=== PATIENT | male | born 1945 | race Caucasian/White ===

== ENCOUNTER 2016-09-13 14:43 | Inpatient (IN) | payer OTHER, MEDICARE ==
[~2016-09-13] VITALS: Ht 182.9 cm; Wt 80.3 kg
[~2016-09-13 14:43] MED LIST: 1-ME1LIQ PO; ALLO100T PO; ATOR40TA PO; KCL20 PO; LISI-366 PO; LORTA5 PO; MAGN400 PO; MULT-34 PO; RIVA10 PO; STRETAB PO; Z.0.WALKERFRONT
[2016-09-13 14:45] VITALS: BP 104/56; PULSE 60; RESP 24; O2SAT 94
--- NOTE | 2016-09-13 20:54 | PD ---
HPI Chief Complaint: General Weakness Time Seen by Provider: 20:34 Travel History International Travel<30 days: No Contact w/Intl Traveler<30days: No Traveled to known affect area: No History of Present Illness HPI 71yo M with chronic alcohol abuse (last alcohol was 3 days ago) was sent by PMD for failure to thrive. Pt went to PMD today because he has been not eating much for 2-3 days, generalized weakness for the last few days that he cannot even get up from bed. Pt usually is able to use walker to get to wheelchair. Pt also with hematuria for 1 month, chronic sob for at least 1 month and chronic abdominal pain. Pt had EGD/Colonoscopy last April and has bleeding ulcer. Currently denies any fever, chest pain, n/v, hematemesis or black stool. PFSH Past Medical History Hx Anticoagulant Therapy: Yes Cardiovascular Problems: Yes (HTN, HIGH CHOLESTEROL) High Cholesterol: Yes COPD: Yes Diminished Hearing: Yes (POARCH BILATERALLY) Gout: Yes Hypertension: Yes Musculoskeletal: Yes (L DROPFOOT) Past Surgical History Joint Replacement: Yes (R HIP ARTHROPLASTY) Other Surgery: Yes (PROSTATE) Social History Alcohol Use: Yes (DAILY) Tobacco Use: Yes (1 PPD) Substance Use: Yes Allergies-Medications (Allergen,Severity, Reaction): Coded Allergies: Crab (Verified Allergy, Unknown, 11/24/15) Reported Meds & Prescriptions Reported Meds & Active Scripts Active Magnesium Oxide 400 Mg Cap 400 Mg PO BID 15 Days Walker Front Wheel (Walkerfront) Device 1 Unit Xarelto 10 Mg Tab (Rivaroxaban) 10 Mg Tab 10 Mg PO Q24H Hydrocodone/Acetaminophen 5 mg/325 mg 1 Tab 1 Tab PO Q4H PRN Reported Stress Formula/Zinc (Multiple Vitamins W/ Minerals) Zinc Tab 1 Tab PO HS Thera-Tabs M (Amino Acids/Minerals/Vitamins) Tab 1 Tab PO DAILY Lisinopril 40 mg (Lisinopril) 40 Mg Tab 1 Tab PO DAILY Atorvastatin 40 mg (Atorvastatin Calcium) 40 Mg Tab 40 Mg PO DAILY Amlodipine Besylate 10 mg (Amlodipine Besylate) 10 Mg Tab 1 Tab PO DAILY Kcl 20 Meq Tab (Potassium Chloride) 20 Meq Tabcr 20 Meq PO DAILY Allopurinol 100 Mg Tab 100 Mg PO DAILY Review of Systems Except as stated in HPI: all other systems reviewed are Neg Physical Exam Narrative GENERAL: 71yo cachetic, pale. SKIN: Warm and dry. HEAD: Atraumatic. Normocephalic. EYES: Pupils equal and round. + scleral icterus. ENT: No nasal bleeding or discharge. Mucous membranes pink and moist. NECK: Trachea midline. No JVD. CARDIOVASCULAR: Regular rate and rhythm. No murmur appreciated. RESPIRATORY: No accessory muscle use. Clear to auscultation. Breath sounds equal bilaterally. GASTROINTESTINAL: Abdomen soft, +TTP diffusely. Distended. MUSCULOSKELETAL: No obvious deformities. No clubbing. No cyanosis. + Pitting edema in extremities. NEUROLOGICAL: Awake and alert. No obvious cranial nerve deficits. Motor grossly within normal limits. Normal speech. PSYCHIATRIC: Appropriate mood and affect; insight and judgment normal. Data Data Last Documented VS Vital Signs Date Time Temp Pulse Resp B/P Pulse Ox O2 Delivery O2 Flow Rate FiO2 09/13/16 14:58 09/13/16 14:45 60 24 94 Room Air Orders Basic Metabolic Panel (Bmp) (09/13/16 20:46) Complete Blood Count With Diff (09/13/16 20:46) Lipase (09/13/16 20:46) Lactic Acid (09/13/16 20:46) Prothrombin Time / Inr (Pt) (09/13/16 20:46) Act Partial Throm Time (Ptt) (09/13/16 20:46) Urinalysis - C+S If Indicated (09/13/16 20:46) Iv Access Insert/Monitor (09/13/16 20:46) Ecg Monitoring (09/13/16 20:46) Oximetry (09/13/16 20:46) Sodium Chloride 0.9% Flush (Ns Flush) (09/13/16 21:00) Electrocardiogram (09/13/16 20:46) Chest, Single Ap (09/13/16 20:46) Hepatic Functional Panel (09/13/16 20:46) Ammonia (09/13/16 20:46) Alcohol (Ethanol) (09/13/16 21:01) Magnesium (Mg) (09/13/16 21:35) Ct Abd/Pel W/O Iv Contrast (09/13/16 ) Potassium Chlor 20 Meq Premix (Kcl 20 Me (09/13/16 22:45) Potassium Chloride (Kcl) (09/13/16 22:45) Sodium Chlor 0.9% 1000 Ml Inj (Ns 1000 M (09/13/16 22:45) Ceftriaxone Inj (Rocephin Inj) (09/13/16 23:00) Azithromycin Inj (Zithromax Inj) (09/13/16 23:00) Blood Culture (09/13/16 22:46) Thiamine Inj (Thiamine Inj) (09/13/16 23:00) Admit Order (Ed Use Only) (09/13/16 23:23) Labs Laboratory Tests Test 09/13/16 09/13/16 21:35 21:37 Prothrombin Time 17.4 SEC Prothromb Time International 1.5 RATIO Ratio Activated Partial 41.6 SEC Thromboplast Time Sodium Level 140 MEQ/L Potassium Level 2.1 MEQ/L Chloride Level 100 MEQ/L Carbon Dioxide Level 25.9 MEQ/L Anion Gap 14 MEQ/L Blood Urea Nitrogen 16 MG/DL Creatinine 2.05 MG/DL Estimat Glomerular Filtration 32 ML/MIN Rate Random Glucose 99 MG/DL Calcium Level 7.8 MG/DL Magnesium Level 1.5 MG/DL Total Bilirubin 2.3 MG/DL Direct Bilirubin 1.6 MG/DL Indirect Bilirubin 0.7 MG/DL Aspartate Amino Transf 80 U/L (AST/SGOT) Alanine Aminotransferase 26 U/L (ALT/SGPT) Alkaline Phosphatase 187 U/L Total Protein 5.5 GM/DL Albumin 1.4 GM/DL Lipase 45 U/L Ethyl Alcohol Level LESS THAN 3 MG/DL White Blood Count 10.1 TH/MM3 Red Blood Count 2.29 MIL/MM3 Hemoglobin 8.1 GM/DL Hematocrit 23.9 % Mean Corpuscular Volume 104.0 FL Mean Corpuscular Hemoglobin 35.5 PG Mean Corpuscular Hemoglobin 34.1 % Concent Red Cell Distribution Width 18.2 % Platelet Count 177 TH/MM3 Mean Platelet Volume 8.9 FL Neutrophils (%) (Auto) 73.3 % Lymphocytes (%) (Auto) 20.1 % Monocytes (%) (Auto) 6.2 % Eosinophils (%) (Auto) 0.0 % Basophils (%) (Auto) 0.4 % Neutrophils # (Auto) 7.4 TH/MM3 Lymphocytes # (Auto) 2.0 TH/MM3 Monocytes # (Auto) 0.6 TH/MM3 Eosinophils # (Auto) 0.0 TH/MM3 Basophils # (Auto) 0.0 TH/MM3 CBC Comment DIFF FINAL Differential Comment Phosphorus Level 1.6 MG/DL Acetaminophen Level LESS THAN 2.0 MCG/ML Lactic Acid Level 6.6 mmol/L Ammonia 13 MCMOL/L [facility] Medical Decision Making Medical Screen Exam Complete: Yes Emergency Medical Condition: Yes Differential Diagnosis Failure to thrive vs. end stage cirrhosis vs. electrolyte abnormalities vs. pancreatitis Narrative Course 71yo M with chronic alcohol abuse here with failure to thrive impression. Labs reviewed, no leukocytosis. H/H 8.1/23.9. MCV 104. K is found to be 2.1, replace with 20mEq KCl IV and 60mEq KCl. Creatinine is elevated at 2.05 from 1.51 on 10/2015. Elevated bilirubin, alk phos, AST. Lactic acid is 6.6. Pt given IVF NS. Alcohol negative. Ammonia 13. CXR showed suspected mild area of consolidation at the inferior lateral right upper lobe with associated mild right pleural effusion. Pt given ceftriaxone and azithromycin. Discussed with [employer] certified internetwork expert Dr. Norton and accepted to ICU. Critical Care Narrative Aggregate critical care time was 40 minutes. Time to perform other separately billable procedures was not included in the critical care time. My time did not include minutes spent treating any other patients simultaneously or on activities that did not directly contribute to the patient's treatment. The services I provided to this patient were to treat and/or prevent clinically significant deterioration that could result in: cardiovascular collapse or . I provided critical care services requiring my management, as noted below: Chart data review, documentation time, medication orders and management, vital sign assessments/reviewing monitor data, ordering and reviewing lab tests, ordering and interpreting/reviewing x-rays and diagnostic studies, care of the patient and discussion of the patient with the admitting physicians. Diagnosis Primary Impression: Hypokalemia Additional Impression: Sepsis Qualified Code: A41.9 - Sepsis, due to unspecified organism Admitting Information Admitting Physician Requests: it Briana Pacheco DO Sep 13, 2016 20:54
[2016-09-13] MEDS ORDERED: SODIUM CHLORIDE 0.9% FLUSH 5 ML FLUSH IVF PRN (21:00)
--- NOTE | 2016-09-13 21:15 | RADRPT ---
EXAM DATE/TIME: 09/13/2016 21:01 [facility] COMPARISON: CHEST SINGLE AP, November 02, 2015, 18:56. INDICATIONS : Shortness of breath with weakness. MEDICAL HISTORY : None. SURGICAL HISTORY : None. ENCOUNTER: Initial ACUITY: 2 months PAIN SCORE: 2/10 LOCATION: Bilateral chest FINDINGS: There is an area of consolidation identified at the inferior lateral aspect of the righ t upper lobe abutting the minor fissure. There is a mild right pleural effusion seen as blunting of the right costophrenic angle. There is possible minimal left pleural effusion. The heart size is nor mal. CONCLUSION: Suspected mild area of consolidation at the inferior lateral right upper lobe with an associated mild right pleural effusion. Jarred Tejada MD on September 13, 2016 at 21:11 Board Certified Radiologist. This report was verified electronically.
[2016-09-13 21:50] LABS: AUTOMATED NEUTROPHIL # 7.4 TH/MM3 (1.8-7.7); BASOPHIL % 0.4 % (0.0-2.0); HEMATOCRIT 23.9 % (39.0-51.0); HEMO FLAGS DIFF FINAL; LYMPH % 20.1 % (9.0-44.0); MEAN CORPUSCULAR HEMOGLOBIN 35.5 PG (27.0-34.0); MEAN CORPUSCULAR HGB CONC 34.1 % (32.0-36.0); MONO % 6.2 % (0.0-8.0); NEUT % 73.3 % (16.0-70.0); PLATELET COUNT 177 TH/MM3 (150-450); RED BLOOD COUNT 2.29 MIL/MM3 (4.50-5.90); RED CELL DISTRIBUTION WIDTH 18.2 % (11.6-17.2); WHITE BLOOD COUNT 10.1 TH/MM3 (4.0-11.0)
[2016-09-13 22:00] VITALS: BP 128/76; PULSE 65; RESP 24; TEMP 97.5; O2SAT 94
[2016-09-13 22:02] LABS: MAGNESIUM 1.5 MG/DL (1.5-2.5)
[2016-09-13 22:06] LABS: APTT (PATIENT) 41.6 SEC (24.3-30.1); INTERNATIONAL NORMALIZED RATIO 1.5 RATIO; PROTHROMBIN TIME - PATIENT 17.4 SEC (9.8-11.6)
[2016-09-13 22:11] LABS: BICARBONATE 25.9 MEQ/L (21.0-32.0); INDIRECT BILIRUBIN 0.7 MG/DL (0.0-0.8); TOTAL BILIRUBIN ADULT 2.3 MG/DL (0.2-1.0)
[2016-09-13 22:33] LABS: POTASSIUM 2.1 MEQ/L (3.5-5.1)
[2016-09-13] MEDS ORDERED: POTASSIUM CHLOR 20 MEQ PREMIX 100 ML IV ONE (22:45)
[2016-09-13] MEDS ORDERED: SODIUM CHLOR 0.9% 1000 ML INJ 1,000 ML IV ONE (22:45)
[2016-09-13] MEDS ORDERED: POTASSIUM CHLORIDE 20 MEQ CONTROLLED RELEASE TAB PO ONE (22:45)
[2016-09-13] MEDS ORDERED: AZITHROMYCIN INJ 500 MG in SODIUM CHLOR 0.9% 250 ML INJ 250 ML IV ONE (23:00)
[2016-09-13] MEDS ORDERED: THIAMINE INJ 100 MG in SODIUM CHLORIDE 0.9% INJ 100 ML IV ONE (23:00)
[2016-09-13] MEDS ORDERED: cefTRIAXone INJ 1,000 MG in SODIUM CHLORIDE 0.9% INJ 100 ML IV ONE (23:00)
--- NOTE | 2016-09-13 23:01 | RADRPT ---
EXAM DATE/TIME: 09/13/2016 22:39 [facility] COMPARISON: No previous studies available for comparison. INDICATIONS : Upper abdominal pain ORAL CONTRAST: No oral contrast ingested. RADIATION DOSE: 10.5 CTDIvol (mGy) MEDICAL HISTORY : Cardiovascular disease. Hypertension. Chronic obstructive pulmonary disease. SURGICAL HISTORY : Prostatectomy. ENCOUNTER: Initial ACUITY: 3 days PAIN SCALE: 4/10 LOCATION: Right upper quadrant TECHNIQUE: Volumetric scanning of the abdomen and pelvis was performed. Using automated exposure control and ad justment of the mA and/or kV according to patient size, radiation dose was kept as low as reasonably achievable to obtain optimal diagnostic quality images. FINDINGS: Moderate size bilateral pleural effusions are identified. There is subsegmental atelectasis in the b oth bases. There is decreased density of the liver with respect to the spleen compatible with fatty i nfiltration. The spleen is unremarkable. Dissemination the gallbladder demonstrates soft tissue densi ty mass within the gallbladder which may reflect sludge or mucosal abnormality. The pancreas demonstr ates no evidence of mass and there is no dilatation of the pancreatic duct. MRI is recommended for fu rther evaluation if clinically indicated. The adrenal glands are unremarkable. The right kidney is un remarkable. There is a single simple cyst in the left kidney measuring 2 cm in the midpole. Examination of the pelvis demonstrates no evidence of free fluid or pelvic mass. No abnormally enlarg ed inguinal or retroperitoneal lymph nodes are present. The bladder is unremarkable. There is diverti culosis without evidence of diverticulitis. The prostate gland is surgically absent. CONCLUSION: 1. No evidence of acute abdominal or pelvic process. No masses are identified. 2. Hypodense liver compatible with fatty infiltration or hepatocellular disease. 3. Possible mucosal mass within the gallbladder. MRI is recommended for further evaluation if clinica lly indicated. 4. Diverticulosis without evidence of diverticulitis. 5. Bilateral effusions Zander Martines MD on September 13, 2016 at 22:56 Board Certified Radiologist. This report was verified electronically.
[2016-09-14] VITALS (21 sets, daily range): BP systolic 75–115; BP diastolic 48–64; PULSE 62–132; RESP 20–30; TEMP 97.3–98.3; O2SAT 92–99
[2016-09-14] MEDS ORDERED: CHLORHEXIDINE GLUCONATE 2 % 1 PACK (2 CLOTHS) TOP PRN
[2016-09-14] MEDS ORDERED: ONDANSETRON HCL 4 MG/2 ML VIAL IV PRN
[2016-09-14] MEDS ORDERED: MISCELLANEOUS NURSING INFORMATION XX SCH
[2016-09-14] MEDS ORDERED: RESP: ALBUTEROL 2.5 MG/3 ML NEB (PRN) INH
[2016-09-14 00:31] LABS: ACETAMINOPHEN LESS THAN 2.0 MCG/ML (10.0-30.0)
--- NOTE | 2016-09-14 00:39 | HHI.HP ---
HPI Service Critical Care Medicine Primary Care Physician Non-Staff Admission Diagnosis Severe hypokalemia, lactic acidosis Diagnosis: Travel History International Travel<30 Days: No Contact w/Intl Traveler <30 Da: No Traveled to Known Affected Are: No History of Present Illness 71 yo WM with past medical history of alcohol abuse, alcoholic cirrhosis, tobacco abuse, hyperlipidemia, hypertension,who presents to [facility] emergency department after he was sent by his primary physician due to failure to thrive. He still states that his fell and broke her hip about 4 months ago and he states that "since that time I have been lazy, and have not been taking care of myself, not taking my meds". He states he has had ongoing alcohol abuse drinking 1.75 L of whiskey every 2 days. He has had several episodes of falling stating that several weeks ago he fell and bruised his left hip, left shoulder, left rib area. He states that he typically uses a walker to transfer to wheelchair but he feels generally so weak that he is unable to do so anymore. He states he has had nothing to eat for 2-3 days and has been drinking only alcohol. He told ED physician that his last drink was 3 days ago. His alcohol level is less than 3. He denies any fever, cough, shortness of breath. He states he has chronic shortness of breath and chronic abdominal discomfort. He denies any nausea, vomiting, hematemesis. He states he has been incontinent of stool and urine for several weeks and has been using adult diapers. He states he has not been having very frequent bowel movements and has not noted any melena or bright red blood per rectum. He is afebrile. ED workup revealed WBC 10k, Hgb 8.1 ( 9.5 16), INR 1.5. He is hypokalemic with potassium of 2.1. Creatinine is 2.05, prior was 1.5 one in October 2015). Lactic acid is 6.6. Chest x-ray demonstrates a right upper lobe pneumonia. CT abdomen and pelvis demonstrated fatty infiltration of the liver. There was a possible gallbladder mass. Discussed with ED RN who states that he had had a large void in his diaper while in the ED. A Gay had subsequently been inserted and his urine output has been 30-40 ml/hr. Review of Systems ROS Limitations: Clinical Condition Past Family Social History Allergies: Coded Allergies: Crab (Verified Allergy, Unknown, 11/24/15) Past Medical History Cirrhosis Hypertension Hyperlipidemia Atrial fibrillation (he states he has never been on chronic anticoagulation... he may have been on xarelto following hip replacement) Alcohol abuse Tobacco abuse He had a previous admission under [place] act 04/20/14 Past Surgical History Right hip arthroplasty 11/03/15 EGD Prostate surgery Reported Medications Please note patient states he has not been compliant with any medications and has been taking no medications at home. Family History Patient denies significant family medical history Social History He smokes a pack of cigarettes per day He drinks 1.75 L of liquor every 2 days Denies use of illicit drugs He uses a walker to help him transfer to a wheelchair He is . His broke her hip for months ago and has not been able to care for him. Physical Exam Vital Signs Vital Signs Date Time Temp Pulse Resp B/P Pulse Ox O2 Delivery O2 Flow Rate FiO2 09/13/16 14:58 09/13/16 14:45 60 24 104/56 94 Room Air Physical Exam Core temperature 98.0 Pulse 60 respirations 24 blood pressure 104/58 sats 94% on room air GENERAL: Elderly chronically ill-appearing, pale, under nourished male who is laying in ED bed with multiple blankets over him. SKIN: dry, peripherally cool but perfused. HEAD: Atraumatic. Normocephalic. EYES: Pupils equal and round, 4 mm and reactive bilaterally. +icterus. ENT: No nasal bleeding or discharge. Mucous membranes dry NECK: Trachea midline. No JVD. CARDIOVASCULAR: irregularly irregular with a fib on the monitor. No murmurs rubs or gallops. RESPIRATORY: He is breathing comfortably on room air. Breath sounds are equal bilaterally. Unable to appreciate any wheezes Rales or rhonchi. GASTROINTESTINAL: He guards voluntarily with attempts at palpation. No obvious ascites on exam. Tender RUQ. No rebound. Bowel sounds present : Gay in place with dark alex urine output. MUSCULOSKELETAL: Extremities without clubbing, cyanosis. Bilateral upper extremities with dependent appearing pitting edema above and below elbows bilaterally. Bilateral lower extremities without edema. NEUROLOGICAL: Awake and alert. He is hard of hearing but no obvious cranial nerve deficits. Oriented x4. Strength 4+ to 5/5 BLE and BUE. Sensation intact to soft touch. No response to babinski. Normal speech. Laboratory Laboratory Tests Test 09/13/16 09/13/16 21:35 21:37 White Blood Count 10.1 Red Blood Count 2.29 Hemoglobin 8.1 Hematocrit 23.9 Mean Corpuscular Volume 104.0 Mean Corpuscular Hemoglobin 35.5 Mean Corpuscular Hemoglobin 34.1 Concent Red Cell Distribution Width 18.2 Platelet Count 177 Mean Platelet Volume 8.9 Neutrophils (%) (Auto) 73.3 Lymphocytes (%) (Auto) 20.1 Monocytes (%) (Auto) 6.2 Eosinophils (%) (Auto) 0.0 Basophils (%) (Auto) 0.4 Neutrophils # (Auto) 7.4 Lymphocytes # (Auto) 2.0 Monocytes # (Auto) 0.6 Eosinophils # (Auto) 0.0 Basophils # (Auto) 0.0 CBC Comment DIFF FINAL Differential Comment Prothrombin Time 17.4 Prothromb Time International 1.5 Ratio Activated Partial 41.6 Thromboplast Time Sodium Level 140 Potassium Level 2.1 Chloride Level 100 Carbon Dioxide Level 25.9 Anion Gap 14 Blood Urea Nitrogen 16 Creatinine 2.05 Estimat Glomerular Filtration 32 Rate Random Glucose 99 Calcium Level 7.8 Magnesium Level 1.5 Total Bilirubin 2.3 Direct Bilirubin 1.6 Indirect Bilirubin 0.7 Aspartate Amino Transf 80 (AST/SGOT) Alanine Aminotransferase 26 (ALT/SGPT) Alkaline Phosphatase 187 Total Protein 5.5 Albumin 1.4 Lipase 45 Ethyl Alcohol Level LESS THAN 3 Phosphorus Level 1.6 Acetaminophen Level LESS THAN 2.0 Lactic Acid Level 6.6 Ammonia 13 Date/Time Procedure Status Source Growth 09/13/16 23:00 Aerobic Blood Culture Received Blood Peripheral Pending 09/13/16 23:00 Anaerobic Blood Culture Received Blood Peripheral Pending Result Diagram: 09/13/16213409/[id number]/[id number] Septic Shock Reassessment Heart: Irregular Lungs: Clear Skin: Dry Peripheral Pulses: Weak Right Radial Weak Left Radial Weak Right Popliteal Weak Left Popliteal Weak Right Dorsalis Pedis Weak Left Dorsalis Pedis Weak Right Posterior Tibial Weak Left Posterior Tibial Capillary Refill: >2 seconds Assessment and Plan Assessment and Plan NEURO: Alcohol abuse Patient is currently awake alert and appears capacitated for medical decision- making at this time. Thiamine 100 mg IV daily, folic acid 1 mg by mouth daily, multivitamin 1 tab by mouth daily CIWA protocol Discussed alcohol cessation Ammonia level is normal at 13 RESP: Tobacco abuse Small right pleural effusion, small to moderate left pleural effusion Community acquired pneumonia Currently on room air. Will use oxygen by nasal cannula if needed to maintain sat greater than 92%. Incentive spirometry every hour. Smoking cessation discussed. Nicotine patch. DuoNeb every 6 hours with albuterol every 2 hours as needed CV: Hypotension secondary to hypovolemia vs sepsis Atrial fibrillation Hyperlipidemia Monitor hemodynamics. Lactic acid is elevated which may represent decreased hepatic clearance in the setting of cirrhosis though he does appear intravascularly dry, may be septic. Was bolused 1 L NaCl in the emergency department. He does appear clinically dry. We'll monitor urine output closely. IV fluids as per below He does not appear good candidate for anticoagulation for atrial fibrillation due to chronic alcoholism, cirrhosis with coagulopathy, frequent falls. Hold statin for now in view of elevated LFTs GI: Alcoholic Cirrhosis Diverticulosis Moderate chronic protein energy malnutrition Hyperbilirubinemia CT abdomen and pelvis 09/13/16no evidence of acute abdominal or pelvic process. There is fatty infiltration of the liver. There is soft tissue density in the gallbladder which may represent sludge versus mucosal mass. Per radiology MRI is recommended. Diverticulosis without diverticulitis. Lipase is normal at 45 Regular diet Right upper quadrant u/s. FEN/RENAL: Acute kidney injury overlying chronic kidney disease stage III Hypokalemia Hypophosphatemia History of prostate cancer status post prostatectomy Given 1 L normal saline in the emergency department Continued continue D5 0.45 NaCl at 125 mL per hour Added phosphorus to ED labs. We'll replace with K-Phos 30 mmol IV. Magnesium is 1.5. Will give magnesium 1 g IV. Received KCl 60 mEq by mouth in the emergency department. Is already receiving potassium chloride 20 Meq IV and will follow with additional 20 MEq IV. He is making urine. Will follow-up potassium, mag and phos. Gay in place. Monitor intake and output. Monitor electrolytes and replace as indicated Check FeNa ID: Acute community acquired pneumonia versus aspiration UTI Received Rocephin and azithromycin in the ED. Send urine pneumococcal antigen. Urinalysis +large LE, positive nitrates, many WBC. F/u urine culture Zosyn 2.25 g IV every 6 hours for aspiration pneumonia, UTI. Patient currently does not have significant ascites. Microbiology 09/13/16blood culture 2 setspending HEME: Macrocytic anemia secondary to liver disease Coagulopathy likely secondary to liver disease He has had poor po intake so will replete vitamin K. No reported evidence of GI bleeding at this time. Will follow-up CBC and monitor clinically. U/s BUE to evaluate for DVT. ENDO: Euglycemic MSK: Gout Allopurinol 100 po daily PROPH: Hold on pharmacologic DVT prophylaxis at this time as he is coagulopathic. Consider in 24 hours if he is stable w/o evidence of bleeding. Protonix 40 mg IV daily for stress ulcer prophylaxis ACCESS: Peripheral IV Patient states that he wishes to be DO NOT RESUSCITATE. He states he believes he has filled this out and formal advanced directives in the past but is not sure where this document is now. He currently is awake and oriented and appears capacitated for medical decision-making. He states that he does want therapy and states that he is "trying to get back on track" but states that "if his heart stops, let him go". Patient updated at bedside. He did become hypotensive in the ED with systolic blood pressure in the 80s. Bolused an additional 1 L normal saline followed up. Remained hypotensive in 80s. Placed CVL and started levophed. transfused 1 unit PRBC for Hgb 7.2 in setting of hypotension. Discussed with ED RN. Discussed with [facility] RN. CCT 55 minutes exclusive of separately billable procedures. aHzel Norton MD Sep 14, 2016 00:39
[2016-09-14] MEDS ORDERED: POTASSIUM PHOSPHATE INJ 30 MMOL in SODIUM CHLOR 0.9% 250 ML INJ 250 ML IV ONE (00:45)
[2016-09-14] MEDS: PIPERACIL-TAZO 2.25 GM PREMIX 50 ML IV SCH ×5 (01:01→23:31)
[2016-09-14] MEDS: ALBUMIN HUMAN 25% 25 GM/100 ML BAGP IV SCH ×4 (01:01→23:31)
[2016-09-14] MEDS: POTASSIUM CHLOR 20 MEQ PREMIX 100 ML IV SCH ×2 (01:02→03:19)
[2016-09-14] MEDS ORDERED: SODIUM CHLORIDE 0.9% FLUSH 5 ML FLUSH IV FLUSH PRN ×2 (01:30)
[2016-09-14] MEDS ORDERED: LORazepam 1 MG TAB PO PRN (01:30)
[2016-09-14] MEDS ORDERED: LORazepam 2 MG TAB PO PRN (01:30)
[2016-09-14] MEDS ORDERED: FLUMAZENIL 0.5 MG/5 ML VIAL IV PUSH PRN (01:30)
[2016-09-14] MEDS ORDERED: LORazepam 2 MG/ML VIAL IV PUSH PRN ×3 (01:30)
[2016-09-14] MEDS ORDERED: SODIUM CHLOR 0.9% 1000 ML INJ 1,000 ML IV ONE ×3 (01:45→05:15)
[2016-09-14] MEDS ORDERED: MAGNESIUM SULFATE 1 GM PREMIX 100 ML IV ONE ×2 (02:15→05:15)
[2016-09-14 02:36] LABS: BACTERIA, URINE MANY /hpf; BLOOD, URINE SMALL (NEG); GLUCOSE,URINE NEG (NEG); HYALINE CAST, URINE 13 /lpf (RARE); KETONE, URINE NEG (NEG); MUCUS URINE FEW /lpf (OCC); NITRITE,URINE POS (NEG); SQUAMOUS EPITHELIAL CELL URINE 1 /hpf (0-5); URINE COLOR ORANGE (YELLW/STRAW)
[2016-09-14 02:39] LABS: COMMENT (UR) CULTURE INDICATED; CULTURE IF INDICATED CULTURE INDICATED
[2016-09-14] MEDS ORDERED: TERBUTALINE INJ 1 MG/ML AMP SQ PRN (02:45)
[2016-09-14] MEDS: RESP: ALBUTEROL 2.5 MG/IPRATROPIUM 0.5 MG NEB (SCH) INH ×4 (02:48→20:40)
[2016-09-14] MEDS ORDERED: NOREPINEPHRINE 4 MG/4 ML AMP ONE (02:48)
[2016-09-14] MEDS: DEXT 5%-NACL 0.45% 1000 ML INJ 1,000 ML IV SCH ×3 (03:19→17:55)
[2016-09-14 03:47] LABS: AUTOMATED NEUTROPHIL # 3.8 TH/MM3 (1.8-7.7); BASOPHIL # 0.1 TH/MM3 (0-0.2); BASOPHIL % 0.9 % (0.0-2.0); LYMPH % 37.7 % (9.0-44.0); LYMPHOCYTE # 2.5 TH/MM3 (1.0-4.8); MEAN CELL VOLUME 104.4 FL (80.0-100.0); MEAN CORPUSCULAR HEMOGLOBIN 35.9 PG (27.0-34.0); MEAN CORPUSCULAR HGB CONC 34.4 % (32.0-36.0); MONO % 3.9 % (0.0-8.0); NEUT % 57.5 % (16.0-70.0); PLATELET COUNT 134 TH/MM3 (150-450); RED BLOOD COUNT 1.99 MIL/MM3 (4.50-5.90); RED CELL DISTRIBUTION WIDTH 17.9 % (11.6-17.2); WHITE BLOOD COUNT 6.6 TH/MM3 (4.0-11.0)
[2016-09-14 03:48] LABS: HEMO FLAGS DIFF FINAL
[2016-09-14 03:50] LABS: HEMATOCRIT 20.8 % (39.0-51.0)
[2016-09-14] MEDS ORDERED: SODIUM CHLOR 0.9% 250 ML INJ 250 ML IV ONE (04:00)
[2016-09-14] MEDS: CHLORHEXIDINE GLUCONATE 2 % 1 PACK (2 CLOTHS) TOP SCH (04:00)
[2016-09-14 04:02] LABS: CALCIUM-PROTEIN CORRECTED 8.6 MG/DL (8.5-10.1); MAGNESIUM 1.3 MG/DL (1.5-2.5); TOTAL BILIRUBIN ADULT 2.2 MG/DL (0.2-1.0)
[2016-09-14 04:04] LABS: POTASSIUM 2.6 MEQ/L (3.5-5.1)
[2016-09-14] MEDS ORDERED: LIDOCAINE 1%/EPINEPHrine 1:100,000 SOLN 30 ML VIAL ONE (04:53)
--- NOTE | 2016-09-14 05:13 | PD.PROCEDR ---
Procedure Note Procedure DATE: 09/14/16 CENTRAL LINE PLACEMENT: Right internal jugular vein. Ultrasound-guided INDICATION: Central venous access CONSENT Informed consent for procedure was obtained from patient after discussion of risks, benefits, alternatives. Signed consent is on the chart. DESCRIPTION OF THE PROCEDURE Patients reed was trimmed and shaved. The patient was placed in supine position, Trendelenburg. The skin was cleansed with Chloraprep. x4 Additional barrier precautions included large sterile drape, sterile gloves, sterile gown, face mask, and hat. 1 % lidocaine was used for local anesthesia. Under direct ultrasound guidance and on single attempt, the vein was accessed with an introducer needle. The guide wire was advanced and the tract was dilated. Using Seldinger technique a 7 Tamazight 20 cm antimicrobial coated triple -lumen catheter was advanced to a depth of 18 centimeters. The guide wire was removed. All ports had good return of dark venous blood and flushed easily with saline. The central line was secured with 2.0 silk. A sterile dressing with antibiotic disc was applied. ESTIMATED BLOOD LOSS: Minimal COMPLICATIONS: No apparent complications. STAT chest x-ray demonstrated satisfactory central venous line position without apparent complication. Hazel Norton MD Sep 14, 2016 05:12
--- NOTE | 2016-09-14 05:39 | RADRPT ---
EXAM DATE/TIME: 09/14/2016 05:00 [facility] COMPARISON: CHEST SINGLE AP, September 13, 2016, 21:01. INDICATIONS : Central line placement. MEDICAL HISTORY : Cardiovascular disease. Chronic obstructive pulmonary disease. Hypertension. SURGICAL HISTORY : None. ENCOUNTER: Subsequent ACUITY: 2 days PAIN SCORE: Non-responsive. LOCATION: Bilateral chest FINDINGS: The cardiac silhouette is enlarged in transverse diameter. There is patchy alveolar disease bilateral ly compatible with edema or pneumonia. The findings have worsened when compared with the prior examin ation. A right sided internal jugular vein catheter is in place with its tip in the superior vena cav a. A tiny right apical pneumothorax is present. CONCLUSION: 1. Line placement as above. Small right apical pneumothorax without tension Zander Martines MD on September 14, 2016 at 5:34 Board Certified Radiologist. This report was verified electronically.
[2016-09-14] MEDS: NOREPINEPHRINE-DEXTROSE DRIP 250 ML IV SCH ×2 (07:48→17:55)
[2016-09-14] MEDS: NICOTINE 21 MG/24 HR PATCH TD SCH (08:08)
[2016-09-14] MEDS: SODIUM CHLORIDE 0.9% FLUSH 5 ML FLUSH IV FLUSH SCH ×2 (08:08→20:43)
[2016-09-14] MEDS: POTASSIUM CHLOR 40 MEQ PREMIX 100 ML IV SCH ×2 (08:08→12:37)
[2016-09-14] MEDS: MULTIVITAMINS/MINERALS THERAPEUTIC TAB PO SCH (08:09)
[2016-09-14] MEDS: FOLIC ACID 1 MG TAB PO SCH (08:09)
[2016-09-14] MEDS: PANTOPRAZOLE SODIUM 40 MG VIAL IV SCH (08:09)
[2016-09-14] MEDS: LORazepam 2 MG/ML VIAL IV PUSH PRN ×2 (08:35→21:02)
[2016-09-14] MEDS: THIAMINE INJ 100 MG in SODIUM CHLORIDE 0.9% INJ 100 ML IV SCH (08:54)
[2016-09-14] MEDS: PHYTONADIONE 5 MG TAB PO SCH (08:59)
[2016-09-14] MEDS ORDERED: SODIUM CHLORIDE 0.9% FLUSH 5 ML FLUSH IV FLUSH SCH (09:00)
--- NOTE | 2016-09-14 10:27 | RADRPT ---
EXAM DATE/TIME: 09/14/2016 09:01 [facility] COMPARISON: CT ABDOMEN & PELVIS W/O CONTRAST, September 13, 2016, 22:39. INDICATIONS : Abnormal labs. Upper abdominal pain. Abnormal CT demonstrating hypodense liver. MEDICAL HISTORY : Hypercholesterolemia. Hypertension. Chronic obstructive pulmonary disease. Anticoagulant therapy. Gou t. ETOH abuse. Left drop foot. Cirrhosis. SURGICAL HISTORY : Right total hip replacement. Prostate surgery. EGD. ENCOUNTER: Initial ACUITY: 1 day PAIN SCORE: 8/10 LOCATION: Bilateral upper quadrant MEASUREMENTS: LIVER: 20.3 cm length COMMON DUCT: 3 mm RIGHT KIDNEY: 11.1 x 4.4 x 4.9 cm SPLEEN: 9.4 cm length FINDINGS: LIVER: The liver is enlarged measuring up to 20 cm with diffuse increased echogenicity. There is mild diffus e inhomogeneity with no ductal dilatation or focal mass. COMMON DUCT: No intraluminal mass or stone visualized. GALLBLADDER: Gallbladder demonstrates wall thickening measuring up to 8 mm with echogenic sludge layering dependen tly. There is ringdown artifact from an apparent small polyp. PANCREAS: The pancreatic duct appears mildly prominent. There is no evidence of pancreatic mass. RIGHT KIDNEY: No hydronephrosis, stone or solid mass. There is small simple appearing cystic structures. SPLEEN: No focal lesion. There is trace free fluid in the abdomen. There is a small left effusion noted. CONCLUSION: 1. Abnormal gallbladder with wall thickening and sludge. There is no apparent small polyp. 2. The liver is enlarged with findings most characteristic of fatty infiltration. 3. The pancreatic duct is mildly prominent no evidence of pancreatic mass. 4. Small left pleural effusion and trace free fluid in the abdomen. 5. Small left pleural effusion and minimal ascites. Christopher Davis MD on September 14, 2016 at 10:22 Board Certified Radiologist. This report was verified electronically.
--- NOTE | 2016-09-14 10:29 | RADRPT ---
EXAM DATE/TIME: 09/14/2016 09:29 [facility] COMPARISON: No previous studies available for comparison. INDICATIONS : Bilateral arm swelling. MEDICAL HISTORY : Chronic obstructive pulmonary disease. Hypertension. Hypercholesterolemia. ETOH abuse. Cirrhosis. A- Fib. Gout. Left dropfoot. SURGICAL HISTORY : Right hip arthroplasty. EGD. Prostate surgery. ENCOUNTER: Initial ACUITY: 4 - 6 days PAIN SCORE: 8/10 LOCATION: Bilateral arms. FINDINGS: RIGHT UPPER EXTREMITY: There is nonocclusive thrombus in the mid to distal cephalic vein. There is spontaneous flow document ed in the brachial, basilic, axillary, and subclavian veins. These vessels are compressible and augm entation response is documented. No filling defects are seen. The flow is phasic with respiration. Direction of flow in the jugular vein is caudal. LEFT UPPER EXTREMITY: There is spontaneous flow documented in the brachial, basilic, cephalic, axillary, and subclavian vei ns. The vessels are compressible and augmentation response is documented. No filling defects are se en. The flow is phasic with respiration. Direction of flow in the jugular vein is caudal. CONCLUSION: 1. Nonocclusive thrombus in the right mid to distal cephalic vein. The remainder of the right upper e xtremity venous system was patent. 2. The left upper extremity venous system is patent. Christopher Davis MD on September 14, 2016 at 10:26 Board Certified Radiologist. This report was verified electronically.
[2016-09-14] MEDS ORDERED: GLUCAGON 1 MG/ML VIAL OTHER PRN (11:00)
[2016-09-14] MEDS ORDERED: DEXTROSE 50% IN WATER 50 ML VIAL(D50) IV PUSH PRN (11:00)
[2016-09-14 11:46] LABS: AUTOMATED NEUTROPHIL # 6.4 TH/MM3 (1.8-7.7); BASOPHIL % 0.2 % (0.0-2.0); HEMATOCRIT 21.6 % (39.0-51.0); HEMO FLAGS DIFF FINAL; LYMPH % 16.5 % (9.0-44.0); LYMPHOCYTE # 1.3 TH/MM3 (1.0-4.8); MEAN CELL VOLUME 98.1 FL (80.0-100.0); MEAN CORPUSCULAR HEMOGLOBIN 33.4 PG (27.0-34.0); MEAN CORPUSCULAR HGB CONC 34.1 % (32.0-36.0); MONO % 5.1 % (0.0-8.0); NEUT % 78.2 % (16.0-70.0); PLATELET COUNT 117 TH/MM3 (150-450); RED CELL DISTRIBUTION WIDTH 21.6 % (11.6-17.2); WHITE BLOOD COUNT 8.2 TH/MM3 (4.0-11.0)
[2016-09-14 11:51] LABS: BICARBONATE 24.5 MEQ/L (21.0-32.0); MAGNESIUM 1.8 MG/DL (1.5-2.5)
[2016-09-14 11:55] LABS: CALCIUM-PROTEIN CORRECTED 8.1 MG/DL (8.5-10.1); TOTAL BILIRUBIN ADULT 2.4 MG/DL (0.2-1.0)
[2016-09-14 12:00] LABS: POTASSIUM 2.7 MEQ/L (3.5-5.1)
[2016-09-14] MEDS: INSULIN NovoLIN REGULAR SUPPLEMENTAL SCALE SQ SCH ×4 (12:14→23:00)
[2016-09-14] MEDS ORDERED: MAGNESIUM SULFATE INJ 2 GM in SODIUM CHLORIDE 0.9% INJ 96 ML IV PRN (12:45)
[2016-09-14] MEDS ORDERED: POTASSIUM PHOSPHATE MONOBASIC 500 MG TAB PO/TUBE PRN (12:45)
[2016-09-14] MEDS ORDERED: MAGNESIUM OXIDE 400 MG TAB PO PRN (12:45)
[2016-09-14] MEDS ORDERED: POTASSIUM CL 40 MEQ/30 ML LIQ UDC PO/TUBE PRN ×2 (12:45)
[2016-09-14] MEDS ORDERED: MAGNESIUM SULFATE INJ 4 GM in SODIUM CHLORIDE 0.9% INJ 92 ML IV PRN (12:45)
[2016-09-14] MEDS ORDERED: POTASSIUM PHOSPHATE MONOBASIC 500 MG TAB PO PRN (12:45)
[2016-09-14] MEDS ORDERED: POTASSIUM CHLOR 20 MEQ PREMIX 100 ML IV PRN ×2 (12:45)
[2016-09-14] MEDS ORDERED: SODIUM PHOSPHATE INJ 30 MMOL in SODIUM CHLOR 0.9% 250 ML INJ 240 ML IV PRN (12:45)
[2016-09-14] MEDS ORDERED: POTASSIUM PHOSPHATE INJ 30 MMOL in SODIUM CHLOR 0.9% 250 ML INJ 250 ML IV PRN (12:45)
[2016-09-14] MEDS ORDERED: POTASSIUM CHLOR 40 MEQ PREMIX 100 ML IV PRN (12:45)
--- NOTE | 2016-09-14 13:31 | RADRPT ---
EXAM DATE/TIME: 09/14/2016 12:49 [facility] COMPARISON: CHEST SINGLE AP, September 14, 2016, 5:00. INDICATIONS : Short of breath. MEDICAL HISTORY : Chronic obstructive pulmonary disease. Cardiovascular disease. Hypertension. SURGICAL HISTORY : None. ENCOUNTER: Initial ACUITY: 2 days PAIN SCORE: Non-responsive. LOCATION: Bilateral chest FINDINGS: 2 AP erect portal views of the chest were obtained and again demonstrate the right internal jugular c entral venous line in place. The patchy opacity at the lung bases is not significant change. Partial obscuration of the left hemidiaphragm is again noted and there is blunting of both costophrenic angle s. The heart size remains within normal limits. The bony thorax is intact. There is no visualized pne umothorax. CONCLUSION: 1. No visualized pneumothorax on the current study. 2. Hazy opacity remains in both lung bases without significant change. 3. Stable small pleural effusions. Christopher Davsi MD on September 14, 2016 at 13:27 Board Certified Radiologist. This report was verified electronically.
--- NOTE | 2016-09-14 17:19 | EKG ---
Date Performed: 09/13/2016 Time Performed: 22:12:26 PTAGE: 71 years EKG: ATRIAL FIBRILLATION WITH ABERRANT CONDUCTION OR VENTRICULAR PREMATURE COMPLEXES LOW QRS VOL TAGE ABNORMAL ECG PREVIOUS TRACING : 11/24/2015 21.03 Atrial fibrillation appears to be new since prior tracing. DOCTOR: Bulmaro Sawyer Interpretating Date/Time 09/14/2016 17:18:19
[2016-09-14 17:53] LABS: HEMATOCRIT 23.7 % (39.0-51.0)
[2016-09-14 17:56] LABS: REVIEW FLAG FINAL
[2016-09-14 19:43] LABS: POTASSIUM 2.5 MEQ/L (3.5-5.1)
[2016-09-14] MEDS ORDERED: POTASSIUM CHLORIDE 10 MEQ CONTROLLED RELEASE TAB PO ONE (20:30)
[2016-09-14] MEDS: POTASSIUM CHLOR 40 MEQ PREMIX 100 ML IV PRN (20:30)
[2016-09-15] VITALS (11 sets, daily range): BP systolic 82–136; BP diastolic 31–83; PULSE 72–146; RESP 28–40; TEMP 97.4–98.1; O2SAT 90–97
[2016-09-15] MEDS: POTASSIUM CHLOR 40 MEQ PREMIX 100 ML IV PRN (00:45)
[2016-09-15 01:03] LABS: HEMATOCRIT 25.7 % (39.0-51.0)
[2016-09-15] MEDS: LORazepam 2 MG/ML VIAL IV PUSH PRN (01:05)
[2016-09-15 01:14] LABS: REVIEW FLAG FINAL
[2016-09-15] MEDS: NOREPINEPHRINE-DEXTROSE DRIP 250 ML IV SCH (02:52)
[2016-09-15] MEDS: DEXT 5%-NACL 0.45% 1000 ML INJ 1,000 ML IV SCH ×2 (02:53→07:55)
[2016-09-15] MEDS: INSULIN NovoLIN REGULAR SUPPLEMENTAL SCALE SQ SCH ×4 (02:57→14:22)
[2016-09-15] MEDS: RESP: ALBUTEROL 2.5 MG/IPRATROPIUM 0.5 MG NEB (SCH) INH ×3 (03:40→16:00)
[2016-09-15] MEDS: CHLORHEXIDINE GLUCONATE 2 % 1 PACK (2 CLOTHS) TOP SCH (04:00)
[2016-09-15] MEDS ORDERED: NOREPINEPHRINE-DEXTROSE DRIP 250 ML IV SCH (04:45)
[2016-09-15] MEDS: PIPERACIL-TAZO 2.25 GM PREMIX 50 ML IV SCH ×2 (05:02→10:32)
[2016-09-15] MEDS: HYDROCORTISONE SOD SUCCINATE 100 MG VIAL IV PUSH SCH ×3 (05:02→12:14)
[2016-09-15 05:39] LABS: AUTOMATED NEUTROPHIL # 6.3 TH/MM3 (1.8-7.7); BASOPHIL % 0.5 % (0.0-2.0); EOSINOPHIL % 0.3 % (0.0-4.0); HEMATOCRIT 26.8 % (39.0-51.0); LYMPH % 21.3 % (9.0-44.0); LYMPHOCYTE # 1.9 TH/MM3 (1.0-4.8); MEAN CELL VOLUME 94.9 FL (80.0-100.0); MEAN CORPUSCULAR HEMOGLOBIN 32.2 PG (27.0-34.0); MONO % 6.6 % (0.0-8.0); NEUT % 71.3 % (16.0-70.0); PLATELET COUNT 133 TH/MM3 (150-450); RED BLOOD COUNT 2.83 MIL/MM3 (4.50-5.90); WHITE BLOOD COUNT 8.8 TH/MM3 (4.0-11.0)
[2016-09-15 05:45] LABS: HEMO FLAGS AUTO DIFF
--- NOTE | 2016-09-15 06:00 | RADRPT ---
EXAM DATE/TIME: 09/15/2016 05:20 [facility] COMPARISON: CHEST SINGLE AP, September 14, 2016, 12:49. INDICATIONS : Shortness of breath, possible pulmonary disease. MEDICAL HISTORY : Chronic obstructive pulmonary disease. Cardiovascular disease. Hypertension. SURGICAL HISTORY : None. ENCOUNTER: Subsequent ACUITY: 3 days PAIN SCORE: Non-responsive. LOCATION: Bilateral chest FINDINGS: The cardiac silhouette is enlarged in transverse diameter. There is patchy alveolar disease bilateral ly compatible with edema or pneumonia. Small bilateral pleural effusions are identified. There has be en no significant change when compared to the prior exam. CONCLUSION: 1. Patchy alveolar disease characteristic of edema or pneumonia. There has been no significant stevens e when compared to the prior exam. Zander Martines MD on September 15, 2016 at 5:58 Board Certified Radiologist. This report was verified electronically.
[2016-09-15 07:36] LABS: BANDS 8 % (0-6); PLATELET ESTIMATE SMEAR LOW (NORMAL); PLATELET MORPHOLOGY NORMAL (NORMAL); POLYS (SEG NEUTROPHILS) 70 % (16-70); PROMYELOCYTES 1 % (0-0); SCAN/DIFF FINAL DIFF MANUAL; WBC DIFF SAMPLE 100
[2016-09-15] MEDS ORDERED: SODIUM CHLOR 0.9% 1000 ML INJ 1,000 ML IV SCH (07:45)
[2016-09-15] MEDS: PANTOPRAZOLE SODIUM 40 MG VIAL IV SCH (07:54)
[2016-09-15] MEDS: ALBUMIN HUMAN 25% 25 GM/100 ML BAGP IV SCH (07:55)
[2016-09-15] MEDS: NICOTINE 21 MG/24 HR PATCH TD SCH (07:55)
[2016-09-15] MEDS: THIAMINE INJ 100 MG in SODIUM CHLORIDE 0.9% INJ 100 ML IV SCH (08:00)
[2016-09-15] MEDS: SODIUM CHLORIDE 0.9% FLUSH 5 ML FLUSH IV FLUSH SCH (08:00)
[2016-09-15] MEDS ORDERED: VASOPRESSIN INJ 40 UNITS in DEXTROSE 5% IN WATER 100ML INJ 98 ML IV SCH ×2 (09:00)
[2016-09-15] MEDS ORDERED: ALLOPURINOL 100 MG TAB PO SCH (09:00)
[2016-09-15] MEDS: FOLIC ACID 1 MG TAB PO SCH (09:00)
[2016-09-15] MEDS: MULTIVITAMINS/MINERALS THERAPEUTIC TAB PO SCH (09:00)
[2016-09-15] MEDS: PHYTONADIONE 5 MG TAB PO SCH (09:00)
--- NOTE | 2016-09-15 09:41 | HHI.CCPN ---
Subjective Remarks/Hospital Course 71 yo WM with past medical history of alcohol abuse, alcoholic cirrhosis, tobacco abuse, hyperlipidemia, hypertension,who presents to [facility] emergency department after he was sent by his primary physician due to failure to thrive. He still states that his fell and broke her hip about 4 months ago and he states that "since that time I have been lazy, and have not been taking care of myself, not taking my meds". He states he has had ongoing alcohol abuse drinking 1.75 L of whiskey every 2 days. He has had several episodes of falling stating that several weeks ago he fell and bruised his left hip, left shoulder, left rib area. He states that he typically uses a walker to transfer to wheelchair but he feels generally so weak that he is unable to do so anymore. He states he has had nothing to eat for 2-3 days and has been drinking only alcohol. He told ED physician that his last drink was 3 days ago. His alcohol level is less than 3. He denies any fever, cough, shortness of breath. He states he has chronic shortness of breath and chronic abdominal discomfort. He denies any nausea, vomiting, hematemesis. He states he has been incontinent of stool and urine for several weeks and has been using adult diapers. He states he has not been having very frequent bowel movements and has not noted any melena or bright red blood per rectum. He is afebrile. ED workup revealed WBC 10k, Hgb 8.1 ( 9.5 /16), INR 1.5. He is hypokalemic with potassium of 2.1. Creatinine is 2.05, prior was 1.5 one in October 2015). Lactic acid is 6.6. Chest x-ray demonstrates a right upper lobe pneumonia. CT abdomen and pelvis demonstrated fatty infiltration of the liver. There was a possible gallbladder mass. Discussed with ED RN who states that he had had a large void in his diaper while in the ED. A Gay had subsequently been inserted and his urine output has been 30-40 ml/hr. 09/15 Patient is now on Levophed 20 mics, on 2L oxygen with sats 97%. Afebrile. Lactic acid 1.6 yesterday. Objective Vital Signs Date Time Temp Pulse Resp B/P Pulse Ox O2 Delivery O2 Flow Rate FiO2 09/15/16 07:30 97 Nasal Cannula 2.00 09/15/16 06:00 101 09/15/16 04:30 136/83 09/15/16 04:00 97.9 30 09/14/16 20:41 21 Intake and Output 09/14/16 09/14/16 09/15/16 08:00 16:00 00:00 Intake Total 1266 ml 4421 ml 1500 ml Output Total 75 ml 200 ml 200 ml Balance 1191 ml 4221 ml 1300 ml Result Diagram: 09/15/16 0505 09/14/16 1800 Other Results Laboratory Tests Test 09/14/16 09/14/16 09/14/16 09/14/16 11:15 15:27 18:00 23:45 White Blood Count 8.2 TH/MM3 Red Blood Count 2.20 MIL/MM3 Hemoglobin 7.3 GM/DL 8.1 GM/DL 8.9 GM/DL Hematocrit 21.6 % 23.7 % 25.7 % Mean Corpuscular Volume 98.1 FL Mean Corpuscular Hemoglobin 33.4 PG Mean Corpuscular Hemoglobin 34.1 % Concent Red Cell Distribution Width 21.6 % Platelet Count 117 TH/MM3 Mean Platelet Volume 8.2 FL Neutrophils (%) (Auto) 78.2 % Lymphocytes (%) (Auto) 16.5 % Monocytes (%) (Auto) 5.1 % Eosinophils (%) (Auto) 0.0 % Basophils (%) (Auto) 0.2 % Neutrophils # (Auto) 6.4 TH/MM3 Lymphocytes # (Auto) 1.3 TH/MM3 Monocytes # (Auto) 0.4 TH/MM3 Eosinophils # (Auto) 0.0 TH/MM3 Basophils # (Auto) 0.0 TH/MM3 CBC Comment DIFF FINAL Differential Comment Sodium Level 141 MEQ/L Potassium Level 2.7 MEQ/L 2.5 MEQ/L Chloride Level 109 MEQ/L Carbon Dioxide Level 24.5 MEQ/L Anion Gap 8 MEQ/L Blood Urea Nitrogen 14 MG/DL Creatinine 1.57 MG/DL Estimat Glomerular Filtration 44 ML/MIN Rate Random Glucose 188 MG/DL Lactic Acid Level 1.6 mmol/L Calcium Level 6.9 MG/DL Protein Corrected Calcium 8.1 MG/DL Phosphorus Level 2.6 MG/DL 2.4 MG/DL Magnesium Level 1.8 MG/DL Total Bilirubin 2.4 MG/DL Aspartate Amino Transf 57 U/L (AST/SGOT) Alanine Aminotransferase 20 U/L (ALT/SGPT) Alkaline Phosphatase 140 U/L Total Protein 4.8 GM/DL Albumin 1.9 GM/DL Test 09/15/16 05:05 White Blood Count 8.8 TH/MM3 Red Blood Count 2.83 MIL/MM3 Hemoglobin 9.1 GM/DL Hematocrit 26.8 % Mean Corpuscular Volume 94.9 FL Mean Corpuscular Hemoglobin 32.2 PG Mean Corpuscular Hemoglobin 34.0 % Concent Red Cell Distribution Width 27.0 % Platelet Count 133 TH/MM3 Mean Platelet Volume 8.7 FL Neutrophils (%) (Auto) 71.3 % Lymphocytes (%) (Auto) 21.3 % Monocytes (%) (Auto) 6.6 % Eosinophils (%) (Auto) 0.3 % Basophils (%) (Auto) 0.5 % Neutrophils # (Auto) 6.3 TH/MM3 Lymphocytes # (Auto) 1.9 TH/MM3 Monocytes # (Auto) 0.6 TH/MM3 Eosinophils # (Auto) 0.0 TH/MM3 Basophils # (Auto) 0.0 TH/MM3 CBC Comment AUTO DIFF Differential Total Cells 100 Counted Neutrophils % (Manual) 70 % Band Neutrophils % 8 % Lymphocytes % 15 % Monocytes % 6 % Neutrophils # (Manual) 7.0 TH/MM3 Promyelocytes 1 % Differential Comment FINAL DIFF MANUAL Platelet Estimate LOW Platelet Morphology Comment NORMAL Imaging Last Impressions Chest X-Ray 09/15/16 0000 Signed Impressions: Service Date/Time: Thursday, September 15, 2016 05:20 - CONCLUSION: 1. Patchy alveolar disease characteristic of edema or pneumonia. There has been no significant change when compared to the prior exam. Zander Martines MD Upper Extremity Ultrasound 09/14/16 0000 Signed Impressions: Service Date/Time: Wednesday, September 14, 2016 09:29 - CONCLUSION: 1. Nonocclusive thrombus in the right mid to distal cephalic vein. The remainder of the right upper extremity venous system was patent. 2. The left upper extremity venous system is patent. Christopher Davsi MD Liver Ultrasound 09/14/16 0000 Signed Impressions: Service Date/Time: Wednesday, September 14, 2016 09:01 - CONCLUSION: 1. Abnormal gallbladder with wall thickening and sludge. There is no apparent small polyp. 2. The liver is enlarged with findings most characteristic of fatty infiltration. 3. The pancreatic duct is mildly prominent no evidence of pancreatic mass. 4. Small left pleural effusion and trace free fluid in the abdomen. 5. Small left pleural effusion and minimal ascites. Christopehr Davis MD Abdomen/Pelvis CT 09/13/16 0000 Signed Impressions: Service Date/Time: August 22:39 - CONCLUSION: 1. No evidence of acute abdominal or pelvic process. No masses are identified. 2. Hypodense liver compatible with fatty infiltration or hepatocellular disease. 3. Possible mucosal mass within the gallbladder. MRI is recommended for further evaluation if clinically indicated. 4. Diverticulosis without evidence of diverticulitis. 5. Bilateral effusions Zander Martines MD Objective Remarks GENERAL: Elderly chronically ill-appearing, pale, under nourished male who is laying in bed in no resp distress SKIN: dry, peripherally cool but perfused. HEAD: Atraumatic. Normocephalic. EYES: Pupils equal and round, 4 mm and reactive bilaterally. +icterus. ENT: No nasal bleeding or discharge. Mucous membranes dry NECK: Trachea midline. No JVD. CARDIOVASCULAR: irregularly irregular with a fib on the monitor. No murmurs rubs or gallops. RESPIRATORY: He is breathing comfortably on room air. Breath sounds are equal bilaterally. Unable to appreciate any wheezes Rales or rhonchi. GASTROINTESTINAL: He guards voluntarily with attempts at palpation. No obvious ascites on exam. Tender RUQ. No rebound. Bowel sounds present : Gay in place with dark alex urine output. MUSCULOSKELETAL: Extremities without clubbing, cyanosis. Bilateral upper extremities with dependent appearing pitting edema above and below elbows bilaterally. Bilateral lower extremities without edema. NEUROLOGICAL: Awake and alert. He is hard of hearing but no obvious cranial nerve deficits. Oriented x4. Strength 4+ to 5/5 BLE and BUE. Sensation intact to soft touch. No response to babinski. Normal speech. A/P Assessment and Plan NEURO: Alcohol abuse Patient is currently awake alert and appears capacitated for medical decision- making at this time. Thiamine 100 mg IV daily, folic acid 1 mg by mouth daily, multivitamin 1 tab by mouth daily CIWA protocol Ammonia level is normal at 13 on 09/13 RESP: Tobacco abuse Small right pleural effusion, small to moderate left pleural effusion Community acquired pneumonia Oxygen PRN to maintain sat greater than 92%. Incentive spirometry every hour. DuoNeb every 6 hours with albuterol every 2 hours as needed CV: Hypotension secondary to hypovolemia vs sepsis Atrial fibrillation Hyperlipidemia Continue with Levophed add Vasopressin monitor HR and BP keep MAP>65mmHg Lactic acid 1.6 yesterday , check lactic acid level. CVP monitoring On stress dose steroids- hydrocortisone 100mg Q8 Check 2D echo to eval LV function He does not appear good candidate for anticoagulation for atrial fibrillation due to chronic alcoholism, cirrhosis with coagulopathy, frequent falls. Hold statin for now in view of elevated LFTs GI: Alcoholic Cirrhosis Diverticulosis Moderate chronic protein energy malnutrition Hyperbilirubinemia CT abdomen and pelvis 09/13/16no evidence of acute abdominal or pelvic process. There is fatty infiltration of the liver. There is soft tissue density in the gallbladder which may represent sludge versus mucosal mass. Per radiology MRI is recommended. Diverticulosis without diverticulitis. Lipase is normal at 45 on 09/13 Regular diet FEN/RENAL: Acute kidney injury overlying chronic kidney disease stage III History of prostate cancer status post prostatectomy Continued continue D5 0.45 NaCl at 125 mL per hour Monitor renal function, I/O's, electrolytes replacement per protocol. ID: Acute community acquired pneumonia versus aspiration UTI Received Rocephin and azithromycin in the ED. Pneumonia and Legionella urinary Ag negative Urinalysis +large LE, positive nitrates, many WBC. F/u urine culture Zosyn 2.25 g IV every 6 hours for aspiration pneumonia, UTI. Add Vanco, ID eval. Microbiology 09/13/16blood culture 2 setspending 09/13 Urine cx: Pending HEME: Macrocytic anemia secondary to liver disease Coagulopathy likely secondary to liver disease Monitor CBC, coags. s/p transfusion 2u PRBC 09/14 No reported evidence of GI bleeding at this time. U/s BUE: Nonocclusive thrombus in the right mid to distal cephalic vein. The remainder of RUE venous system was patent. LUE venous system is patent. ENDO: Euglycemic MSK: Gout Allopurinol 100 po daily PROPH: Hold on pharmacologic DVT prophylaxis at this time as he is coagulopathic and received blood transfusion yesterday . Protonix 40 mg IV daily for stress ulcer prophylaxis ACCESS: Right IJ CVP placed 09/14, place right rad Art line. Per Dr. Norton: Patient states that he wishes to be DO NOT RESUSCITATE. He states he believes he has filled this out and formal advanced directives in the past but is not sure where this document is now. He currently is awake and oriented and appears capacitated for medical decision-making. He states that he does want therapy and states that he is "trying to get back on track" but states that "if his heart stops, let him go". I spoke to patient's Dayanara Davis updated her on his condition and his overall prognosis all questions answered and she voiced understanding. Also she confirmed no code DNR status. Patient does not want any chest compression, cardiac resuscitation or mechanical ventilation. 1630 Addendum: Patient is now maxed out on 3 pressors with multiorgan injury, septic shock , gram negative bacteremia, acute renal failure, lactic acidemia discussed with patient's Dayanara and his brother John Davis and they all elected to proceed with hospice and transition o comfort care. Prognosis guarded. Will consult hospice service per family's request. CCT 40 minutes exclusive of separately billable procedures. Jassi Rojas MD Sep 15, 2016 09:41
[2016-09-15] MEDS ORDERED: NOREPINEPHRINE 16 MG/D5W 250 ML IV SCH ×2 (09:45)
[2016-09-15 09:56] LABS: INTERNATIONAL NORMALIZED RATIO 1.5 RATIO; PROTHROMBIN TIME - PATIENT 17.3 SEC (9.8-11.6)
[2016-09-15] MEDS ORDERED: VANCOMYCIN INJ 1,000 MG in SODIUM CHLOR 0.9% 250 ML INJ 250 ML IV SCH ×4 (10:00)
[2016-09-15 10:12] LABS: BICARBONATE 14.3 MEQ/L (21.0-32.0); CALCIUM-PROTEIN CORRECTED 7.6 MG/DL (8.5-10.1); MAGNESIUM 1.6 MG/DL (1.5-2.5); POTASSIUM 3.7 MEQ/L (3.5-5.1); TOTAL BILIRUBIN ADULT 3.1 MG/DL (0.2-1.0)
[2016-09-15] MEDS ORDERED: Vancomycin Consult Pharmacy 1 EA OTHER SCH (10:15)
[2016-09-15] MEDS ORDERED: CALCIUM GLUCONATE INJ 1 GM in SODIUM CHLORIDE 0.9% INJ 100 ML IV ONE (11:00)
[2016-09-15] MEDS ORDERED: DEXT 5%-NACL 0.9% 1000 ML INJ 1,000 ML IV SCH (11:00)
[2016-09-15] MEDS ORDERED: SODIUM BICARBONATE 8.4% INJ 50 MEQ/50 ML SYR IV PUSH ONE (12:00)
[2016-09-15] MEDS ORDERED: SODIUM BICARBONATE 8.4% INJ 150 MEQ in DEXTROSE 5% IN WATE 1000ML INJ 1,000 ML IV SCH ×2 (12:00)
--- NOTE | 2016-09-15 12:15 | PD.ID.CON ---
History of Present Illness Service ID Consult Requested By Reason for Consult Evaluation and Mment of Septic Shock, Gram negative bacteremia, Gram negative UTI. Primary Care Physician Non-Staff Diagnoses: History of Present Illness Most of the history from medical records. Patient is altered mental status. provided additional details. is a 71 y/o WM with PMHx of alcohol abuse, alcoholic cirrhosis, tobacco abuse, hyperlipidemia, hypertension, who presents to [facility] emergency department after he was sent by his primary physician due to failure to thrive and ? neglect of self health. Patient reportedly has ongoing alcohol abuse drinking 1.75 L of whiskey every 2 days. Reportedly, he has had several episodes of falling stating that several weeks ago he fell and bruised his left hip, left shoulder, left rib area. He states that he typically uses a walker to transfer to wheelchair but he feels generally so weak that he is unable to do so anymore. He states he has had nothing to eat for 2-3 days and has been drinking only alcohol. His alcohol level on admission was less than 3 and reportedly last drink was 3 days prior to admission. No reported h/o fever, cough, shortness of breath. Reportedly has chronic shortness of breath and chronic abdominal discomfort. No reported h/o any nausea, vomiting, hematemesis. Reportedly he has been incontinent of stool and urine for several weeks and has been using adult diapers. He states he has not been having very frequent bowel movements and has not noted any melena or bright red blood per rectum. reports pt has prostate issues but does not see a doctor and has not been on any medications. Patient has had EGD (gastric ulcers) and Colonoscopy. No reported h/o melena or UGI bleed. On admission, patient was afebrile but hypothermic, hypotension, elevated lactic acid. ED workup revealed WBC 10k, Hgb 8.1 (9.5 4/16), INR 1.5. He is hypokalemic with potassium of 2.1. Creatinine is 2.05, prior was 1.5 one in October 2015). Lactic acid was 6.6 improved and now at 7. Chest x-ray demonstrates a right upper lobe pneumonia. CT abdomen and pelvis demonstrated fatty infiltration of the liver. There was a possible gallbladder mass. Discussed with ED RN who states that he had had a large void in his diaper while in the ED. A Gay had subsequently been inserted and his urine output has been 30-40 ml/hr. ID consulted for evaluation and Mment of Septic Shock, Gram negative bacteremia and Gram negative UTI. Review of Systems ROS Limitations: Intubated, Altered Mental Status Past Family Social History Allergies: Coded Allergies: Crab (Verified Allergy, Unknown, 11/24/15) *MDRO Multi-Drug Resistant Organism (Verified Adverse Reaction, Unknown, MRSA, 09/14/16) MRSA PCR (nares) POSITIVE - 09/14/16 Past Medical History Cirrhosis Hypertension Hyperlipidemia Atrial fibrillation (he states he has never been on chronic anticoagulation... he may have been on xarelto following hip replacement) Alcohol abuse Tobacco abuse He had a previous admission under [place] act 04/20/14 Past Surgical History Right hip arthroplasty 11/03/15 EGD Prostate surgery Reported Medications Reported Meds & Active Scripts Active Mag-Ox 400 (Magnesium Oxide) 400 Mg Cap 400 Mg PO BID 15 Days Walker Front Wheel (Z.0.ProtoShare) Device 1 Unit Xarelto 10 Mg Tab (Rivaroxaban) 10 Mg Tab 10 Mg PO Q24H Hydrocodone/Acetaminophen 5 mg/325 mg 1 Tab 1 Tab PO Q4H PRN Reported Stress Formula/Zinc (Multiple Vitamins W/ Minerals) Zinc Tab 1 Tab PO HS Thera-Tabs M (Amino Acids/Minerals/Vitamins) Tab 1 Tab PO DAILY Lisinopril 40 mg (Lisinopril) 40 Mg Tab 1 Tab PO DAILY Atorvastatin 40 mg (Atorvastatin Calcium) 40 Mg Tab 40 Mg PO DAILY 1-Methyl 2-Pyrrolidinone (1-Methyl 2-Pyrrolidone (Bulk)) 10 Mg Tab 1 Tab PO DAILY Kcl 20 Meq Tab (Potassium Chloride) 20 Meq Tabcr 20 Meq PO DAILY Allopurinol 100 Mg Tab 100 Mg PO DAILY Active Ordered Medications Current Medications Medications (Trade) Dose Ordered Sig/Malcom Route Start Time Stop Time Status Last Admin (Protonix Inj) 40 mg DAILY IV 09/14/16 09:00 09/15/16 07:54 (Zofran Inj) 4 mg Q6H PRN IV 09/14/16 00:00 Miscellaneous Information 1 Q361D XX 09/14/16 00:00 (Chlorhexidine 2% Cloth) 3 pack Taper DAILY@04 TOP 09/14/16 04:00 09/10/17 03:59 09/15/16 04:00 Chlorhexidine Gluconate 3 pack 3 pack UNSCH PRN TOP 09/14/16 00:00 (Thiamine Inj/NS Inj) 101 ml @ 101 mls/hr DAILY IV 09/14/16 09:00 09/19/16 08:59 09/15/16 08:00 (Folate) 1 mg DAILY PO 09/14/16 09:00 09/18/16 09:01 09/14/16 08:09 (NS Flush) 2 ml UNSCH PRN IV FLUSH 09/14/16 01:30 (NS Flush) 2 ml BID IV FLUSH 09/14/16 09:00 09/15/16 08:00 (Theragran M Tab) 1 tab DAILY PO 09/14/16 09:00 09/19/16 08:59 09/14/16 08:09 (Romazicon Inj) 0.2 mg Q1M PRN IV PUSH 09/14/16 01:30 (Ativan) 1 mg Q4H PRN PO 09/14/16 01:30 (Ativan Inj) 1 mg Q4H PRN IV PUSH 09/14/16 01:30 09/15/16 01:05 (Ativan) 2 mg Q2H PRN PO 09/14/16 01:30 (Ativan Inj) 2 mg Q2H PRN IV PUSH 09/14/16 01:30 (Ativan Inj) 2 mg Q1H PRN IV PUSH 09/14/16 01:30 09/14/16 17:16 (Ativan Inj) 2 mg Q15M PRN IV PUSH 09/14/16 01:30 (Habitrol 21 Mg Patch.24 Hr) 1 patch DAILY TD 09/14/16 09:00 09/15/16 07:55 (Brethine Inj) 1 mg UNSCH PRN SQ 09/14/16 02:45 (Zyloprim) 100 mg DAILY PO 09/15/16 09:00 (D50w (Vial) Inj) 25 ml UNSCH PRN IV PUSH 09/14/16 11:00 (Glucagon Inj) 1 mg UNSCH PRN OTHER 09/14/16 11:00 Insulin Human Regular 1 1 Q4H SQ 09/14/16 11:00 09/15/16 10:32 Potassium Chloride 100 ml @ 50 mls/hr Q2H PRN IV 09/14/16 13:00 09/15/16 00:45 (KCl 20 Meq Premix Inj) 100 ml @ 50 mls/hr Q2H PRN IV 09/14/16 12:45 Potassium Chloride 40 meq 40 meq UNSCH PRN PO/TUBE 09/14/16 12:45 Potassium Chloride 100 ml @ 25 mls/hr UNSCH PRN IV 09/14/16 12:45 Potassium Chloride 100 ml @ 50 mls/hr Q2H PRN IV 09/14/16 12:45 (Magnesium Sulfate Inj/NS Inj) 100 ml @ 50 mls/hr UNSCH PRN IV 09/14/16 12:45 Magnesium Oxide 800 mg 800 mg UNSCH PRN PO 09/14/16 12:45 (Magnesium Sulfate Inj/NS Inj) 100 ml @ 50 mls/hr UNSCH PRN IV 09/14/16 12:45 Potassium Phosphate 2000 mg 2,000 mg Q4H PRN PO 09/14/16 12:45 (Sodium Phosphate Inj/NS 250 ml Inj) 250 ml @ 42 mls/hr UNSCH PRN IV 09/14/16 12:45 09/14/16 23:31 (KCl 40 Meq/30 ml Liq) 40 meq UNSCH PRN PO/TUBE 09/14/16 12:45 Potassium Phosphate 2000 mg 2,000 mg UNSCH PRN PO/TUBE 09/14/16 12:45 (Potassium Phosphate Inj/NS 250 ml Inj) 260 ml @ 42 mls/hr UNSCH PRN IV 09/14/16 12:45 Hydrocortisone Sodium Succinate 100 mg 100 mg Q8HR IV PUSH 09/15/16 04:45 09/15/16 12:14 Vasopressin 40 units/Dextrose 100 ml @ 4.5 mls/hr [id number] IV 09/15/16 09:00 09/15/16 07:54 Norepinephrine Bitartrate 16 mg/ Dextrose 250 ml @ 0 mls/hr TITRATE IV 09/15/16 09:45 09/15/16 10:11 Vancomycin HCl 1000 mg/Sodium Chloride 250 ml @ 250 mls/hr Q24H IV 09/15/16 10:00 09/15/16 10:30 Pharmacy Profile Note 0 ml @ 0 mls/hr UNSCH OTHER 09/15/16 10:15 (Sodium Bicarbonate 8.4% Inj/D5W 1000 ml Inj) 1,150 ml @ 125 mls/hr Q9H12M IV 09/15/16 12:00 09/15/16 12:14 Family History could not be obtained. Social History He smokes a pack of cigarettes per day He drinks 1.75 L of liquor every 2 days Denies use of illicit drugs He uses a walker to help him transfer to a wheelchair He is . His broke her hip for months ago and has not been able to care for him. Physical Exam Vital Signs Vital Signs Date Time Temp Pulse Resp B/P Pulse Ox O2 Delivery O2 Flow Rate FiO2 09/15/16 10:00 105 09/15/16 08:00 97.8 104 36 95/52 94 09/15/16 08:00 104 09/15/16 07:30 97 Nasal Cannula 2.00 09/15/16 06:00 101 09/15/16 04:30 136/83 09/15/16 04:00 109 09/15/16 04:00 97.9 109 30 82/31 90 09/15/16 02:00 72 09/15/16 00:00 98.1 97 30 84/47 90 09/15/16 00:00 78 09/14/16 22:00 79 09/14/16 20:41 94 21 09/14/16 20:00 99 09/14/16 20:00 97.3 99 30 97/60 92 09/14/16 18:00 70 09/14/16 16:00 69 09/14/16 16:00 97.7 86 21 105/54 99 09/14/16 14:00 63 Physical Exam GENERAL: This is a well-nourished, well-developed patient, in no apparent distress. SKIN: No rashes, ecchymoses or lesions. Cool and dry. HEAD: Atraumatic. Normocephalic. No temporal or scalp tenderness. EYES: Pupils equal round and reactive. Extraocular motions intact. No scleral icterus. No injection or drainage. ENT: Nose without bleeding, purulent drainage or septal hematoma. Throat without erythema, tonsillar hypertrophy or exudate. Uvula midline. Airway patent. NECK: Trachea midline. Supple, nontender, no meningeal signs. CARDIOVASCULAR: HS audible. ? systolic murmur. RESPIRATORY: Clear to auscultation. Breath sounds equal bilaterally. No wheezes , rales, or rhonchi. GASTROINTESTINAL: Abdomen soft, non-tender, nondistended. MUSCULOSKELETAL: Extremities without clubbing, cyanosis, or edema. NEUROLOGICAL: Opens eyes spontaneously. Psych: could not be assessed. IV line sites with no e/o infection. Laboratory Laboratory Tests Test 09/14/16 09/14/16 09/14/16 09/15/16 15:27 18:00 23:45 05:05 Hemoglobin 8.1 8.9 9.1 Hematocrit 23.7 25.7 26.8 Potassium Level 2.5 Phosphorus Level 2.4 White Blood Count 8.8 Red Blood Count 2.83 Mean Corpuscular Volume 94.9 Mean Corpuscular Hemoglobin 32.2 Mean Corpuscular Hemoglobin 34.0 Concent Red Cell Distribution Width 27.0 Platelet Count 133 Mean Platelet Volume 8.7 Neutrophils (%) (Auto) 71.3 Lymphocytes (%) (Auto) 21.3 Monocytes (%) (Auto) 6.6 Eosinophils (%) (Auto) 0.3 Basophils (%) (Auto) 0.5 Neutrophils # (Auto) 6.3 Lymphocytes # (Auto) 1.9 Monocytes # (Auto) 0.6 Eosinophils # (Auto) 0.0 Basophils # (Auto) 0.0 CBC Comment AUTO DIFF Differential Total Cells 100 Counted Neutrophils % (Manual) 70 Band Neutrophils % 8 Lymphocytes % 15 Monocytes % 6 Neutrophils # (Manual) 7.0 Promyelocytes 1 Differential Comment FINAL DIFF MANUAL Platelet Estimate LOW Platelet Morphology Comment NORMAL Test 09/15/16 09:15 Prothrombin Time 17.3 Prothromb Time International 1.5 Ratio Sodium Level 137 Potassium Level 3.7 Chloride Level 107 Carbon Dioxide Level 14.3 Anion Gap 16 Blood Urea Nitrogen 11 Creatinine 1.67 Estimat Glomerular Filtration 41 Rate Random Glucose 188 Lactic Acid Level 7.0 Calcium Level 6.8 Protein Corrected Calcium 7.6 Phosphorus Level 3.9 Magnesium Level 1.6 Total Bilirubin 3.1 Aspartate Amino Transf 36 (AST/SGOT) Alanine Aminotransferase 16 (ALT/SGPT) Alkaline Phosphatase 112 Total Protein 5.5 Albumin 2.7 Date/Time Procedure Status Source Growth 09/14/16 11:15 Legionella Antigen - Final Complete Urine Catheterized Urine PRESUMPTIVE NEGATIVE FOR LEGIONELLA P... 09/14/16 00:30 Urine Culture - Preliminary Resulted Urine Random Urine Gram Negative Thom 09/14/16 00:30 Streptococcus pneumoniae Antigen (M - Final Complete Urine Catheterized Urine PRESUMPTIVE NEGATIVE FOR STREPTOCOCCU... 09/13/16 23:00 Aerobic Blood Culture - Preliminary Resulted Blood Peripheral Gram Negative Thom 09/13/16 23:00 Anaerobic Blood Culture - Preliminary Resulted Blood Peripheral NO GROWTH IN 2 DAYS Result Diagram: 09/15/16 0505 09/15/16 0915 Imaging Last Impressions Chest X-Ray 09/15/16 0000 Signed Impressions: Service Date/Time: Thursday, September 15, 2016 05:20 - CONCLUSION: 1. Patchy alveolar disease characteristic of edema or pneumonia. There has been no significant change when compared to the prior exam. Zander Martines MD Upper Extremity Ultrasound 09/14/16 0000 Signed Impressions: Service Date/Time: Wednesday, September 14, 2016 09:29 - CONCLUSION: 1. Nonocclusive thrombus in the right mid to distal cephalic vein. The remainder of the right upper extremity venous system was patent. 2. The left upper extremity venous system is patent. Christopher Davis MD Liver Ultrasound 09/14/16 0000 Signed Impressions: Service Date/Time: Wednesday, September 14, 2016 09:01 - CONCLUSION: 1. Abnormal gallbladder with wall thickening and sludge. There is no apparent small polyp. 2. The liver is enlarged with findings most characteristic of fatty infiltration. 3. The pancreatic duct is mildly prominent no evidence of pancreatic mass. 4. Small left pleural effusion and trace free fluid in the abdomen. 5. Small left pleural effusion and minimal ascites. Christopher Davis MD Abdomen/Pelvis CT 09/13/16 0000 Signed Impressions: Service Date/Time: August 22:39 - CONCLUSION: 1. No evidence of acute abdominal or pelvic process. No masses are identified. 2. Hypodense liver compatible with fatty infiltration or hepatocellular disease. 3. Possible mucosal mass within the gallbladder. MRI is recommended for further evaluation if clinically indicated. 4. Diverticulosis without evidence of diverticulitis. 5. Bilateral effusions Zander Martines MD Assessment and Plan Assessment and Plan Septic Shock with MODS (acute resp failure, acute metabolic encephalopathy, oliguric renal failure) Gram negative bacteremia Gram negative UTI h/o prostate issues. ? Aspiration pneumonia. acute respiratory failure acute oliguric renal failure, acute metabolic encephalopathy: sepsis, alcohol withdrawal. Hypoalbuminemia: liver cirrhosis, malnutrition. Recs: DC Zosyn IV Start Meropenem IV (ASP: Worsening septic shock on Zosyn IV) Blood cultures x 2. Vanco last dose today. Notified pharmacist Don to dose Vanco based on levels given oliguria. Will reassess need in am. Follow cultures Follow clinically. Andie Ibrahim MD Sep 15, 2016 12:14
[2016-09-15] MEDS ORDERED: MISCELLANEOUS PHARMACY INFORMATION XX PRN ×2 (12:30)
[2016-09-15] MEDS ORDERED: ASP: Other exception documentation: ( ) XX PRN ×2 (12:30)
[2016-09-15] MEDS ORDERED: TERBUTALINE INJ 1 MG/ML AMP SQ PRN (12:30)
[2016-09-15] MEDS ORDERED: MEROPENEM INJ 500 MG in SODIUM CHLORIDE 0.9% INJ 100 ML IV SCH (13:00)
[2016-09-15] MEDS ORDERED: PHENYLEPHRINE HCL 160 MG/D5W 484 ML ADMIX IV SCH ×2 (13:00)
[2016-09-15 13:37] LABS: HEMATOCRIT 27.3 % (39.0-51.0)
[2016-09-16] MEDS ORDERED: VANCOMYCIN INJ 1,250 MG in SODIUM CHLOR 0.9% 250 ML INJ 250 ML IV SCH (09:00)
[2016-09-18] MEDS ORDERED: PHARMACY ORDERED LAB XX ONE (08:45)
--- NOTE | 2016-10-24 08:37 | MD ---
cc: LUCÍA BAILEY M.D. ADMISSION DATE: 09/13/2016 DISCHARGE DATE: 09/15/2016 DATE OF 1945 HISTORY The patient is a 71-year-old male with a past medical history of ETOH abuse, cirrhosis of the liver, tobacco abuse, hyperlipidemia, hypertension who was admitted to [facility] on September 14 for failure to thrive. The patient has had ongoing ETOH abuse, drinking approximately 1.75 liters of whiskey every two days and a history of multiple falls in the past. On arrival, he was found to be in renal failure with a creatinine of 2.0 and hypokalemic with a potassium level of 2.1. Chest x-ray on admission showed right upper lobe pneumonia and a CT abdomen and pelvis showed fatty infiltration of the liver. The patient was placed on thiamine, folic acid, multivitamins and CIWA protocol. Also, he was placed on oxygen, bronchodilators and antibiotics in the form of Zosyn and vancomycin. Due to hypotension, he was placed on pressors in the form of Levophed and vasopressin to maintain a MAP greater than 65 mmHg. His lactic acid level was measured at 1.6. The patient was also on stress dose steroids Hydrocortisone 100 mg q8. He was in A fib, however, he was not a good candidate for anticoagulation due to his cirrhosis of the liver with coagulopathy, frequent falls. He received IV fluids in the form of D5 half NS at 125 mL/hour for his acute kidney injury. On September 14, the patient received two units of PRBCs and ultrasound of the bilateral upper extremity showed nonocclusive thrombus in the right mid to distal cephalic vein. A right IJ central line was placed on September 14. The patient was made DNR by Dr. Norton. He continued to decline any ICU and was placed on three pressors for septic shock and was in multiorgan failure, renal failure, lactic acidemia and gram-negative bacteremia. The patient's and his brother elected to proceed with hospice and transition to comfort care. Hospice service was consulted per family's request and the patient on September 15. MD TOMMY Torres/DAYAN /11:58 AM /8:16 AM
== END 2016-09-15 18:00 | disposition expired | DRG 193 ==
LOC: NEPC 14:43 → NEDA 23:25 → HIMN 09-14 03:35
PROVIDERS: ADMIT Emergency Medicine; ATTEND Emergency Medicine
PROC: 0T9B70Z Drainage of Bladder with Drainage Device, Via Natural or Artificial Opening (ICD-10-PCS; principal; 2016-09-13)
PROC: 30233N1 Transfusion of Nonautologous Red Blood Cells into Peripheral Vein, Percutaneous Approach (ICD-10-PCS; 2016-09-13)
PROC: 05HM33Z Insertion of Infusion Device into Right Internal Jugular Vein, Percutaneous Approach (ICD-10-PCS; 2016-09-14)
DX: J18.9 Pneumonia, unspecified organism (principal); G93.41 Metabolic encephalopathy; N17.9 Acute kidney failure, unspecified; D68.4 Acquired coagulation factor deficiency; J90 Pleural effusion, not elsewhere classified; E87.2 Acidosis; N18.3 Chronic kidney disease, stage 3 (moderate); E44.0 Moderate protein-calorie malnutrition; N39.0 Urinary tract infection, site not specified; F10.239 Alcohol dependence with withdrawal, unspecified; J69.0 Pneumonitis due to inhalation of food and vomit; E87.6 Hypokalemia; J44.9 Chronic obstructive pulmonary disease, unspecified; R62.7 Adult failure to thrive; F17.210 Nicotine dependence, cigarettes, uncomplicated; I12.9 Hypertensive chronic kidney disease with stage 1 through stage 4 chronic kidney disease, or unspecified chronic kidney disease; E78.00 Pure hypercholesterolemia, unspecified; H91.93 Unspecified hearing loss, bilateral; M10.9 Gout, unspecified; K70.30 Alcoholic cirrhosis of liver without ascites; E78.5 Hyperlipidemia, unspecified; R32 Unspecified urinary incontinence; R15.9 Full incontinence of feces; K76.0 Fatty (change of) liver, not elsewhere classified; I48.91 Unspecified atrial fibrillation; K57.90 Diverticulosis of intestine, part unspecified, without perforation or abscess without bleeding; E83.39 Other disorders of phosphorus metabolism; D53.9 Nutritional anemia, unspecified; Z66 Do not resuscitate; Z87.11 Personal history of peptic ulcer disease; Z96.641 Presence of right artificial hip joint; Z85.46 Personal history of malignant neoplasm of prostate; Z90.79 Acquired absence of other genital organ(s); Z91.14 Patient's other noncompliance with medication regimen
CPT/HCPCS: 36430; 36556; 36620; 71010; 74176; 76705; 76937; 80048; 80053; 80076; 80320; 80329; 81001; 82140; 82272; 82570; 82948; 83605; 83690; 83735; 84100; 84132; 84300; 85007; 85014; 85018; 85025; 85027; 85610; 85730; 86850; 86900; 86901; 86920; 87040; 87077; 87086; 87186; 87205; 87449; 87641; 93005; 93970; 94640; 94664; 96374; 96375; C9113; G0480; J0456; J0610; J0696; J1720; J2060; J2185; J2370; J2543; J3370; J3411; J3475; J3480; J7030; J7042; J7050; J7060; J7070; P9016; P9047